=== PATIENT | female | born 1955 | race Caucasian/White ===

== ENCOUNTER → 2019-04-15 | Outpatient (CLI) | payer BC ==
--- NOTE | 2019-04-17 15:33 | RAD ---
DATE: 04/15/2019 EXAM: MAMMO DIANA SCREENING BILATERAL HISTORY: Routine screening COMPARISON: 12/26/2011, 03/24/2016 mammographic exams This study was interpreted with the benefit of Computerized Aided Detection (CAD). Breast Density: HETERO The breast parenchyma is heterogenously dense, which could reduce sensitivity of mammography. Breast parenchyma level C. FINDINGS: Benign calcification are present. No masses or distortion. IMPRESSION: Stable. BI-RADS CATEGORY: 1 NEGATIVE RECOMMENDED FOLLOW-UP: 12M 12 MONTH FOLLOW-UP PQRS compliance statement: Patient information was entered into a reminder system with a target due date in one year for the next mammogram. Mammography is a sensitive method for finding small breast cancers, but it does not detect them all and is not a substitute for careful clinical examination. A negative mammogram does not negate a clinically suspicious finding and should not result in delay in biopsying a clinically suspicious abnormality. "Our facility is accredited by the [employer] Mammography [employer]."
== END | disposition home or self-care (01) ==
LOC: MAMMO 13:52
PROVIDERS: ATTEND Physician Assistant
DX: Z12.31 Encounter for screening mammogram for malignant neoplasm of breast (principal); N64.89 Other specified disorders of breast
CPT/HCPCS: 77063; 77067

== ENCOUNTER → 2020-04-16 | Outpatient (CLI) | payer BC ==
--- NOTE | 2020-04-16 18:22 | RAD ---
BILATERAL SCREENING MAMMOGRAM, 3-D History: Routine screening. Comparison: 04/15/2019, 03/24/2016, 12/26/2011. Technique: MLO and CC digital tomosynthesis (3D) images obtained. Radiologist reviewed these images on dedicated workstation. Findings: Breast Tissue Density B : There are scattered areas of fibroglandular density. There are no dominant masses, suspicious microcalcifications, or architectural distortion. 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 No new mass or distortion IMPRESSION: No mammographic evidence of malignancy. Recommend routine screening. BI-RADS category 1: Negative. The images were reviewed with computer-aided detection. Patient information is entered into reminder system with a target due date for the next screening mammogram. Mammography is the most sensitive method for finding small breast cancers, but it does not detect them all and is not a substitute for careful clinical examination. A negative mammogram does not negate a clinically suspicious finding and should not result in delay in biopsying a clinically suspicious abnormality. "Our facility is accredited by the [employer]ammography [employer]." Electronically signed by: Chao Solorzano MD (04/16/2020 6:19 PM) [id number]
== END | disposition home or self-care (01) ==
LOC: MAMMO 12:47
PROVIDERS: ATTEND Physician Assistant
DX: Z12.31 Encounter for screening mammogram for malignant neoplasm of breast (principal)
CPT/HCPCS: 77063; 77067

== ENCOUNTER 2020-12-22 10:16 | Emergency (ER) | payer BC ==
[~2020-12-22] VITALS: Ht 162.6 cm; Wt 91.5 kg
--- NOTE | 2020-12-22 10:28 | PHYS DOC ---
Past History Past Medical History: Diabetes, High Cholesterol, Hyperthyroid Adult General Chief Complaint Chief Complaint: BACK PAIN OR INJURY HPI HPI Patient is a 65-year-old female presenting via EMS for right flank pain. Onset was approximately 1 hour prior while patient when showering. No trauma or known mechanism of injury, states she started developing sharp right flank pain that radiates along her right groin region to pubic area. Pain has been constant since onset but does admit slight improvement without any intervention. Reports pain is stabbing in nature and 7/10 in severity with radiation to groin as mentioned. Associated symptoms include nausea. Denies any fever, recent sick contact, no changes in medication, no chest pain, shortness of breath, urinary symptoms, known blood loss. Has history of , appendectomy and subsequent small bowel obstruction from abdominal adhesions in the past, denies history of kidney stones Review of Systems Review of Systems Fourteen body systems of review of systems have been reviewed. See HPI for pertinent positives and negative responses, other casas all other systems are negative, non-pertinent or non-contributory Physical Exam Physical Exam Constitutional: Well developed, well nourished, nontoxic appearing but does appear to be in pain HENT: Normocephalic, atraumatic, bilateral external ears normal, oropharynx dry, no oral exudates, nose normal. Eyes: PERRLA, EOMI, conjunctiva normal, no discharge. Neck: Normal range of motion, no tenderness, supple, no stridor. Cardiovascular: Heart rate regular, sinus rhythm, no murmurs rubs or gallops Lungs & Thorax: Bilateral breath sounds clear to auscultation Abdomen: Bowel sounds normal, soft, tenderness present to palpation of right flank, negative Damon sign, no guarding or rebound, no masses, no pulsatile masses. Nonsurgical abdomen, no peritoneal signs Skin: Warm, dry, no erythema, no rash. Back: No tenderness, right CVA tenderness Extremities: No tenderness, no cyanosis, no clubbing, ROM intact, no edema. Neurologic: Alert and oriented X 3, grossly normal motor & sensory function, no focal deficits noted. Psychologic: Anxious affect and mood Current Patient Data Vital Signs Vital Signs Date Time Temp Pulse Resp B/P (MAP) Pulse Ox O2 Delivery O2 Flow Rate FiO2 12/22/20 10:20 97.9 70 16 163/72 (102) 100 Room Air Vital Signs Date Time Temp Pulse Resp B/P (MAP) Pulse Ox O2 Delivery O2 Flow Rate FiO2 12/22/20 13:27 75 130/51 (77) 97 Room Air 12/22/20 11:03 18 12/22/20 10:20 97.9 Lab Results Laboratory Tests Test 12/22/20 10:28 12/22/20 10:36 12/22/20 12:09 White Blood Count 10.6 x10^3/uL Red Blood Count 4.79 x10^6/uL Hemoglobin 13.6 g/dL Hematocrit 41.3 % Mean Corpuscular Volume 86 fL Mean Corpuscular Hemoglobin 29 pg Mean Corpuscular Hemoglobin Concent 33 g/dL Red Cell Distribution Width 13.3 % Platelet Count 325 x10^3/uL Neutrophils (%) (Auto) 66 % Lymphocytes (%) (Auto) 25 % Monocytes (%) (Auto) 5 % Eosinophils (%) (Auto) 3 % Basophils (%) (Auto) 1 % Neutrophils # (Auto) 7.1 x10^3uL Lymphocytes # (Auto) 2.7 x10^3/uL Monocytes # (Auto) 0.5 x10^3/uL Eosinophils # (Auto) 0.3 x10^3/uL Basophils # (Auto) 0.1 x10^3/uL Sodium Level 139 mmol/L Potassium Level 3.6 mmol/L Chloride Level 103 mmol/L Carbon Dioxide Level 24 mmol/L Anion Gap 12 Blood Urea Nitrogen 19 mg/dL Creatinine 0.9 mg/dL Estimated GFR (Cockcroft-Gault) 63.0 BUN/Creatinine Ratio 21 Glucose Level 308 mg/dL Calcium Level 9.3 mg/dL Total Bilirubin 0.3 mg/dL Aspartate Amino Transf (AST/SGOT) 13 U/L Alanine Aminotransferase (ALT/SGPT) 20 U/L Alkaline Phosphatase 78 U/L Troponin I Quantitative < 0.017 ng/mL Total Protein 7.8 g/dL Albumin 4.0 g/dL Albumin/Globulin Ratio 1.1 Glucose (Fingerstick) 285 mg/dL Urine Collection Type Unknown Urine Color Yellow Urine Clarity Clear Urine pH 5.0 Urine Specific [place] 1.020 Urine Protein Neg Urine Glucose (UA) >=1000 mg/dL Urine Ketones (Stick) 40 mg/dL Urine Blood Neg Urine Nitrite Neg Urine Bilirubin Neg Urine Urobilinogen Dipstick 0.2 mg/dL Urine Leukocyte Esterase Neg Urine RBC 0 /HPF Urine WBC Rare /HPF Urine Bacteria Few /HPF Current Medications Medications (Trade) Dose Ordered Sig/Shy Route PRN Reason Start Time Stop Time Status Last Admin Dose Admin Ondansetron HCl (Zofran) 4 mg STK-MED ONCE .ROUTE 12/22/20 10:32 12/22/20 10:32 DC Ondansetron HCl (Zofran) 4 mg 1X ONCE IVP 12/22/20 10:45 12/22/20 10:57 DC 12/22/20 10:45 Morphine Sulfate (Morphine 2mg Syringe) 2 mg 1X ONCE IV 12/22/20 10:45 12/22/20 10:57 DC 12/22/20 11:03 Ketorolac Tromethamine (Toradol 15mg Vial) 15 mg 1X ONCE IVP 12/22/20 11:45 12/22/20 11:46 DC 12/22/20 11:37 Fentanyl Citrate (Fentanyl 2ml Vial) 50 mcg 1X ONCE IVP 12/22/20 13:00 12/22/20 13:01 DC 12/22/20 13:20 EKG EKG EKG ordered and interpreted by myself at 1042 hrs. as sinus rhythm at 66 bpm, unremarkable intervals, no axis deviation, no acute ischemic findings, no STEMI Radiology/Procedures Radiology/Procedures Exam: CT abdomen/pelvis without contrast Indication: Right flank pain radiating to groin Comparison: None Technique: Helical CT imaging performed of the abdomen and pelvis without contrast. Sagittal and coronal reformats were obtained. One or more of the following individualized dose reduction techniques were utilized for this examination: 1. Automated exposure control 2. Adjustment of the mA and/or kV according to patient size 3. Use of iterative reconstruction technique. Findings: Lower chest: Lung bases are clear. The heart is normal in size Liver: Normal noncontrast appearance of the liver. Gallbladder/Biliary Tree: Normal. Pancreas: Normal. Spleen: Normal. Adrenal Glands: Normal. Kidneys/Ureters/Bladder: The kidneys are normal in size. No nephrolithiasis or hydronephrosis. Ureters and bladder are normal. Reproductive Organs: Uterus is anteverted. No adnexal mass. Stomach, small bowel, and colon: The stomach and small bowel are normal. The appendix is not definitively visualized. The colon is normal. Vasculature: Abdominal aorta is normal in caliber. Lymph Nodes: No lymphadenopathy. Peritoneum and retroperitoneum: No free fluid or free air. There is a 7 mm ca lcified nodule in the anterior lower abdomen, nonspecific. Bones: No acute osseous abnormality. There is transitional anatomy at the lumbosacral junction. Impression: No acute abnormality in the abdomen and pelvis. Electronically signed by: Margaret Upton MD (12/22/2020 11:06 AM) [id number] Heart Score C/O Chest Pain: No HEART Score for Chest Pain: HEART Score for Chest Pain Response (Comments) Value History Slighlty/Non-Suspicious 0 ECG Normal 0 Age >45 - < 65 1 Risk Factors >3 Risk Factors or Hx CAD 2 Troponin < Normal Limit 0 Total 3 Risk Factors: Risk Factors: DM, Current or recent (<one month) smoker, HTN, HLP, family history of CAD, obesity. Risk Scores: Risk Factors: DM, Current or recent (<one month) smoker, HTN, HLP, family history of CAD, obesity. Course & Med Decision Making Course & Med Decision Making Discussed with the patient all findings and diagnostic testing. I discussed most likely diagnosis of hyperglycemia versus undetectable kidney stone versus musculoskeletal strain of right oblique muscle versus other. I reviewed all testing with patient with good understanding and reassured her that there were no obvious emergent and/or surgical findings. Patient responded to ER intervention that included antiemetics and IV pain control. Shared decision making occurred in joint decision made to discharge home with continued s upportive care practices. I did disclose this might be an acute presentation of more concerning pathology and so, I stressed need for close outpatient follow-up to review today's ER visit. Strict return precautions were also discussed at length with good understanding by patient. Patient voiced understanding and agreement with the plan. Patient knows to come back for repeat evaluation if concerning signs or symptoms present prior to outpatient follow-up. Hemodynamically stable, ambulatory and well-appearing at time of disposition. Dragon Disclaimer Dragon Disclaimer This electronic medical record was generated, in whole or in part, using a voice recognition dictation system. Departure Departure: Impression: Primary Impression: Right flank pain Disposition: HOME / SELF CARE / HOMELESS Condition: STABLE Referrals: GWEN MCKEON (PCP) Patient Instructions: Back Exercises, Flank Pain Additional Instructions: You have been evaluated in the Emergency Department today for back/flank pain. Your evaluation was not suggestive of any emergent condition requiring medical intervention at this time. However, some abdominal problems make take more time to appear. Therefore, it is important for you to watch for any new symptoms or worsening of your current condition. As discussed, your condition is likely self-limiting and will respond to supportive care. Continue heat, utilize Tylenol and/or ibuprofen for pain, and utilize muscle relaxer as needed at night Return to the Emergency Department if you experience worsening pain, persistent fevers greater than 100.4, recurrent vomiting, blood in vomit, blood in stool, dark tarry stool, chest pain, difficulty breathing, or any other concerning symptoms. Scripts Cyclobenzaprine Hcl (CYCLOBENZAPRINE HCL) 5 Mg Tablet 1 TAB PO QHS for BACK SPASM, #30 TAB Prov: MARIA ANTONIA RUIZ DO 12/22/20 MRAIA ANTONIA RUIZ DO Dec 22, 2020 10:28
[2020-12-22] MEDS ORDERED: ONDANSETRON PF 4 MG/2 ML VIAL. ONE (10:32)
[2020-12-22 10:43] LABS: BASO # 0.1 x10^3/uL (0.0-0.2); BASO % 1 % (0-3); EOS # 0.3 x10^3/uL (0.0-0.7); EOS % 3 % (0-3); HEMATOCRIT 41.3 % (36.0-47.0); HEMOGLOBIN 13.6 g/dL (12.0-15.5); LYMPH # 2.7 x10^3/uL (1.0-4.8); LYMPH % 25 % (24-48); MEAN CORPUSCULAR HEMOGLOBIN 29 pg (25-35); MEAN CORPUSCULAR HGB CONC 33 g/dL (31-37); MEAN CORPUSCULAR VOLUME 86 fL (79-100); MONO # 0.5 x10^3/uL (0.0-1.1); MONO % 5 % (0-9); NEUT # 7.1 x10^3uL (1.8-7.7); NEUT % 66 % (31-73); PLATELET COUNT 325 x10^3/uL (140-400); RED BLOOD COUNT 4.79 x10^6/uL (3.50-5.40); RED CELL DISTRIBUTION WIDTH 13.3 % (11.5-14.5); WHITE BLOOD COUNT 10.6 x10^3/uL (4.0-11.0)
[2020-12-22] MEDS ORDERED: MORPHINE SULFATE 2 MG/ML DISP.SYRIN. IV ONE (10:45)
[2020-12-22] MEDS ORDERED: ONDANSETRON PF 4 MG/2 ML VIAL. IVP ONE (10:45)
[2020-12-22 11:02] LABS: CALCIUM 9.3 mg/dL (8.5-10.1); CREATININE 0.9 mg/dL (0.6-1.0); POTASSIUM 3.6 mmol/L (3.5-5.1)
[2020-12-22 11:08] LABS: ALBUMIN/GLOBULIN RATIO 1.1 (1.0-1.7); TOTAL BILIRUBIN 0.3 mg/dL (0.2-1.0); TOTAL PROTEIN 7.8 g/dL (6.4-8.2)
--- NOTE | 2020-12-22 11:09 | RAD ---
Exam: CT abdomen/pelvis without contrast Indication: Right flank pain radiating to groin Comparison: None Technique: Helical CT imaging performed of the abdomen and pelvis without contrast. Sagittal and eduar nal reformats were obtained. One or more of the following individualized dose reduction techniques were utilized for this examinat ion: 1. Automated exposure control 2. Adjustment of the mA and/or kV according to patient size 3. Use of iterative reconstruction technique. Findings: Lower chest: Lung bases are clear. The heart is normal in size Liver: Normal noncontrast appearance of the liver. Gallbladder/Biliary Tree: Normal. Pancreas: Normal. Spleen: Normal. Adrenal Glands: Normal. Kidneys/Ureters/Bladder: The kidneys are normal in size. No nephrolithiasis or hydronephrosis. Ureter s and bladder are normal. Reproductive Organs: Uterus is anteverted. No adnexal mass. Stomach, small bowel, and colon: The stomach and small bowel are normal. The appendix is not definiti vely visualized. The colon is normal. Vasculature: Abdominal aorta is normal in caliber. Lymph Nodes: No lymphadenopathy. Peritoneum and retroperitoneum: No free fluid or free air. There is a 7 mm calcified nodule in the an terior lower abdomen, nonspecific. Bones: No acute osseous abnormality. There is transitional anatomy at the lumbosacral junction. Impression: No acute abnormality in the abdomen and pelvis. Electronically signed by: Margaret Upton MD (12/22/2020 11:06 AM) [id number]
--- NOTE | 2020-12-22 11:25 | EKG ---
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
[2020-12-22] MEDS ORDERED: KETOROLAC 15 MG/ML VIAL. IVP ONE (11:45)
[2020-12-22 12:48] LABS: BILIRUBIN,URINE NEG (NEG); CLARITY,URINE CLEAR; COLOR,URINE YELLOW; GLUCOSE,URINE >=1000 mg/dL (NEG); NITRITE,URINE NEG (NEG); UROBILINOGEN,URINE 0.2 mg/dL (0.2 mg/dL)
[2020-12-22 12:49] LABS: BACTERIA,URINE FEW /HPF (0-FEW); RBC,URINE 0 /HPF (0-2); WBC,URINE RARE /HPF (0-4)
[2020-12-22] MEDS ORDERED: CYCL5TAB PO (13:02)
[2020-12-22 13:27] VITALS: BP 130/51
== END 2020-12-22 13:40 | disposition home or self-care (01) ==
LOC: ER 10:16
DX: R10.9 Unspecified abdominal pain (principal); R11.0 Nausea; E11.9 Type 2 diabetes mellitus without complications; E78.00 Pure hypercholesterolemia, unspecified; E05.90 Thyrotoxicosis, unspecified without thyrotoxic crisis or storm
CPT/HCPCS: 36415; 74176; 80053; 81001; 82947; 84484; 85025; 93005; 96374; 96375; 99285; J1885; J2270; J2405; J3010

== ENCOUNTER → 2020-12-24 | Outpatient (CLI) | payer BC ==
[2020-12-22 13:27] VITALS: BP 130/51
[~2020-12-24] MED LIST: CYCL5TAB PO
--- NOTE | 2020-12-24 16:02 | RAD ---
EXAM: Right hip, 2 views. HISTORY: Pain. COMPARISON: None. FINDINGS: 2 views the right hip are obtained. There is no fracture, dislocation or subluxation. There is degenerative change involving the lumbosacral junction. IMPRESSION: No acute osseous finding. Electronically signed by: Brigitte Graff MD (12/24/2020 4:00 PM) [id number]
--- NOTE | 2020-12-24 16:56 | RAD ---
XR LUMBAR SPINE 4+V 12/24/2020 3:28 PM INDICATION: Back pain and right hip pain COMPARISON: None available. TECHNIQUE: 5 views of the lumbar spine are provided. FINDINGS: Alignment of the lumbar spine is normal. Vertebral body heights are maintained. No acute fracture is identified. Disc heights are maintained. Mild endplate degenerative changes with marginal osteophytosis. Mild low er lumbar significant facet arthropathy. No significant osseous neuroforaminal stenosis or spinal can al stenosis. Nonobstructive bowel gas pattern. Visualized portions of the sacrum appear intact. Impression: Mild lumbar spondylosis without acute fracture or malalignment. Electronically signed by: Katey Sanderson MD (12/24/2020 4:53 PM) [id number]
== END ==
LOC: RAD 15:21
PROVIDERS: ATTEND Physician Assistant
DX: M47.816 Spondylosis without myelopathy or radiculopathy, lumbar region (principal)
CPT/HCPCS: 72110; 73502

== ENCOUNTER → 2021-04-21 | Outpatient (CLI) | payer BC ==
--- NOTE | 2021-04-23 19:33 | RAD ---
DATE: 04/21/2021 EXAM: MAMMO DIANA SCREENING BILATERAL HISTORY: Screening COMPARISON: Prior exams dating back to 2011 This study was interpreted with the benefit of Computerized Aided Detection (CAD). Breast Density: HETERO The breast parenchyma is heterogenously dense, which could reduce sensitivity of mammography. Breast parenchyma level C. FINDINGS: No mass, suspicious calcification, or architectural distortion in either breast. IMPRESSION: No evidence of malignancy. BI-RADS CATEGORY: 1 NEGATIVE RECOMMENDED FOLLOW-UP: 12M 12 MONTH FOLLOW-UP PQRS compliance statement: Patient information was entered into a reminder system with a target due date for the next mammogram. Mammography is a sensitive method for finding small breast cancers, but it does not detect them all and is not a substitute for careful clinical examination. A negative mammogram does not negate a clinically suspicious finding and should not result in delay in biopsying a clinically suspicious abnormality. "Our facility is accredited by the [employer] Mammography [employer]."
== END ==
LOC: MAMMO 14:04
PROVIDERS: ATTEND Physician Assistant
DX: Z12.31 Encounter for screening mammogram for malignant neoplasm of breast (principal)
CPT/HCPCS: 77063; 77067